=== PATIENT | male | born 1940 | race Caucasian/White ===

== ENCOUNTER 2018-07-09 02:18 | Emergency (ER) | payer MEDICARE ==
[~2018-07-09] VITALS: Ht 167.6 cm; Wt 86.2 kg
[2018-07-09] MEDS ORDERED: TRAMADOL HCL 50 MG TAB PO ONE ×2 (03:00)
[2018-07-09] MEDS ORDERED: KETOROLAC TROMETHAMINE 60 MG/2 ML VIAL ONE (03:22)
[2018-07-09] MEDS ORDERED: KETOROLAC TROMETHAMINE 60 MG/2 ML VIAL IM ONE (03:30)
== END 2018-07-09 03:30 | disposition home or self-care (01) ==
LOC: ER 02:18
DX: H66.001 Acute suppurative otitis media without spontaneous rupture of ear drum, right ear (principal); I10 Essential (primary) hypertension; E78.5 Hyperlipidemia, unspecified; K21.9 Gastro-esophageal reflux disease without esophagitis; Z85.89 Personal history of malignant neoplasm of other organs and systems
CPT/HCPCS: 99283; J1885

== ENCOUNTER 2018-07-12 21:05 | Inpatient (IN) | payer MEDICARE ==
[~2018-07-12] VITALS: Ht 167.6 cm; Wt 85.3 kg
[2018-07-12 21:56] LABS: BASOPHILS # (AUTO) 0.1 (0.0-0.1); BASOPHILS % 0.4 % (0.0-1.0); EOSINOPHILS # (AUTO) 0.3 (0.0-0.4); EOSINOPHILS % 2.5 % (0.0-6.0); HEMATOCRIT 39.6 % (38.2-49.6); HEMOGLOBIN 13.6 g/dL (14.0-18.0); LYMPHOCYTES # (AUTO) 2.3 (1.0-3.2); LYMPHOCYTES % 19.8 % (18.0-39.1); MEAN CORPUSCULAR HEMOGLOBIN 31.6 pg (28-32); MEAN CORPUSCULAR HGB CONC 34.3 g/dL (31-35); MEAN CORPUSCULAR VOLUME 92.1 fL (81-99); MONOCYTES # (AUTO) 1.4 (0.2-0.8); MONOCYTES % 12.5 % (4.4-11.3); NEUTROPHILS # (AUTO) 7.3 (2.1-6.9); NEUTROPHILS % 64.3 % (38.7-80.0); PLATELET COUNT 355 x10e3/uL (140-360); RED CELL DISTRIBUTION WIDTH 12.6 % (11.7-14.4)
[2018-07-12] MEDS ORDERED: DILTIAZEM HCL 5 MG/ML 5 ML VIAL IV STA (21:58)
[2018-07-12 22:00] LABS: INR 0.98; PROTHROMBIN TIME 13.9 seconds (11.9-14.5)
[2018-07-12 22:10] LABS: ALANINE AMINOTRANSFERASE 80 IU/L (0-55); ALBUMIN 2.7 g/dL (3.5-5.0); ALBUMIN/GLOBULIN RATIO 0.7 (0.8-2.0); ALKALINE PHOSPHATASE 58 IU/L (40-150); ANION GAP 14.8 mmol/L (8-16); BLOOD UREA NITROGEN 16 mg/dL (7-26); BUN/CREATININE RATIO 15 (6-25); CALCIUM 8.9 mg/dL (8.4-10.2); CARBON DIOXIDE 20 mmol/L (22-29); CHLORIDE 104 mmol/L (98-107); CREATINE KINASE 148 IU/L (30-200); CREATININE, SERUM 1.05 mg/dL (0.72-1.25); EST GLOMERULAR FILTRATION RATE > 60 ML/MIN (60-); GLUCOSE 265 mg/dL (74-118); MAGNESIUM 2.1 MG/DL (1.3-2.1); POTASSIUM 3.8 mmol/L (3.5-5.1); SODIUM 135 mmol/L (136-145)
[2018-07-12] MEDS ORDERED: METOPROLOL TARTRATE 25 MG TAB PO ONE (22:15)
[2018-07-12] MEDS ORDERED: METOPROLOL TARTRATE 25 MG TAB ONE (22:21)
[2018-07-12 22:30] LABS: THYROID STIMULATING HORMONE 1.137 uIU/mL (0.350-4.940)
--- NOTE | 2018-07-12 22:40 | Diagnostic Imaging Report ---
EXAMINATION: CHEST SINGLE (PORTABLE) INDICATION: NEW AFIB RVR COMPARISON: None FINDINGS: AP view TUBES and LINES: None. LUNGS: Lungs are well inflated. Lungs are clear. There is no evidence of pneumonia or pulmonary edema. PLEURA: No pleural effusion or pneumothorax. HEART AND MEDIASTINUM: The cardiomediastinal silhouette is unremarkable. BONES AND SOFT TISSUES: No acute osseous lesion. Soft tissues are unremarkable. UPPER ABDOMEN: No free air under the diaphragm. IMPRESSION: No acute thoracic abnormality. Signed by: DR. Jamey Mathis MD on 07/12/2018 10:37 PM
[2018-07-12 23:01] LABS: BILIRUBIN,URINE NEGATIVE (NEGATIVE); CLARITY,URINE CLEAR (CLEAR); COLOR,URINE YELLOW (YELLOW); KETONES,URINE NEGATIVE (NEGATIVE); LEUKOCYTE ESTERASE ,URINE NEGATIVE (NEGATIVE); NITRITE,URINE NEGATIVE (NEGATIVE); PROTEIN,URINE DIPSTICK NEGATIVE (NEGATIVE); URINE UROBILINOGEN 0.2 mg/dL (0.2 - 1)
[2018-07-12 23:10] LABS: BACTERIA,URINE RARE /HPF; EPITHELIAL CELLS,URINE FEW /LPF; RENAL EPITHELIAL CELLS,URINE RARE
[2018-07-12] MEDS ORDERED: ASPIR 8181 MG PO (23:12)
[2018-07-12] MEDS ORDERED: PANTOPRAZOLE SO40 MG PO (23:12)
[2018-07-12] MEDS ORDERED: SIMVASTATIN40 MG PO (23:12)
[2018-07-12] MEDS ORDERED: AMOXICILLIN500 MG PO (23:12)
[2018-07-12] MEDS ORDERED: CARVEDILOL3.125 MG PO (23:12)
[2018-07-12] MEDS ORDERED: LISINOPRIL2.5 MG PO (23:12)
[2018-07-12] MEDS ORDERED: CLOPIDOGREL75 MG PO (23:12)
[2018-07-12] MEDS ORDERED: ULTRAM 50MG50 MG PO (23:12)
--- NOTE | 2018-07-12 23:28 | Diagnostic Imaging Report ---
EXAMINATION: Head CT without contrast. HISTORY:Dizziness, high blood pressure. COMPARISON:None. TECHNIQUE: Multidetector axial images were obtained from the foramen magnum to the vertex without contrast. The images were reconstructed using brain and bone algorithms. Thin section brain images were reformatted into coronal and sagittal planes. Dose modulation, iterative reconstruction, and/or weight based adjustment of the mA/kV was utilized to reduce the radiation dose to as low as reasonably achievable. Intravenous contrast: None IMAGE QUALITY: Acceptable. FINDINGS: Skull/scalp: No lytic or blastic. lesions. No surgical changes. Parenchyma: Nonspecific bilateral frontoparietal patchy white matter hypodensity are likely related to small vessel ischemic changes. Focal cortical-based hypodensity in the posterior lateral aspect of the right cerebellar hemisphere, represents age indeterminate, possible chronic vascular insult in right spica territory. No acute hemorrhage, mass or acute major vascular territorial infarct. Arteries: No density suggestive of thrombosis. Dural sinuses: No abnormal density suggestive of thrombosis. Ventricles: Mild compensated dilatation due to volume loss. No hydrocephalus. Extra-axial spaces: No abnormal density. Brain volume: Generalized age-related cerebral volume loss. Craniocervical junction: No mass, Chiari malformation, or basilar invagination. Sella: No mass. Paranasal/mastoid sinuses: Near complete opacification of the visualized portion of right maxillary sinus. Moderate mucosal thickening in bilateral ethmoid and left sphenoid sinus. Partial opacification of right mastoid air cells. IMPRESSION: 1. No acute intracranial abnormality, particularly no acute hemorrhage, mass or acute major vascular territorial infarct. 2. Age indeterminate possible chronic vascular insult in right cerebellar hemisphere. 3. Mild supratentorial white matter microvascular ischemic changes. 4. Generalized age-related cerebral volume loss. Signed by: Dr. Mimi Jack M.D. on 07/12/2018 11:24 PM
[2018-07-12] MEDS ORDERED: ACETAMINOPHEN 325 MG TAB PO PRN (23:45)
[2018-07-12] MEDS ORDERED: ONDANSETRON HCL INJ 2 MG/ML VIAL IV PRN (23:45)
[2018-07-12] MEDS ORDERED: CEFTRIAXONE SOD 1 GM VIAL IV SCH (23:45)
--- OUTSIDE RECORDS SUMMARY | 2018-07-12 23:56 | XMS REPORT ---
[facility] Address Unknown Phone Unavailable Care Team Providers Care Italian Teacher Name Role Phone Maria Elena DUNN Unavailable Unavailable Problems This patient has no known problems. Allergies, Adverse Reactions, Alerts This patient has no known allergies or adverse reactions. Medications This patient has no known medications. Results Test Description Test Time Test Comments Text Results Atomic Results Result Comments CT BRAIN WO 2018-07-12 23:20:00 [facility] [address] [address] Patient Name: CHARLEE ROCHE MR #: [id number] : 1940 Age/Sex: 78/M Req #: [id number] Adm Physician: Ordered by: ESTEBAN DUNN MD Report #: [id number] Location: ER Room/Bed: Procedure: [id number] CT/CT BRAIN WO Exam Date: Exam Time: REPORT STATUS: Signed EXAMINATION: Head CT without contrast. HISTORY:Dizziness, high blood pressure. COMPARISON:None. TECHNIQUE: Multidetector axial images were obtained from the foramen magnum to the vertex without contrast. The images were reconstructed using brain and bone algorithms. Thin section brain images were reformatted into coronal and sagittal planes. Dose modulation, iterative reconstruction, and/or weight based adjustment of the mA/kV was utilized to reduce the radiation dose to as low as reasonably achievable. Intravenous contrast: None IMAGE QUALITY: Acceptable. FINDINGS: Skull/scalp: No lytic or blastic. lesions. No surgical changes. Parenchyma: Nonspecific bilateral frontoparietal patchy white matter hypodensity are likely related to small vessel ischemic changes. Focal cortical-based hypodensity in the posterior lateral aspect of the right cerebellar hemisphere, represents age indeterminate, possible chronic vascular insult in right spica territory. No acute hemorrhage, mass or acute major vascular territorial infarct. Arteries: No density suggestive of thrombosis. Dural sinuses: No abnormal density suggestive of thrombosis. Ventricles: Mild compensated dilatation due to volume loss. No hydrocephalus. Extra-axial spaces: No abnormal density. Brain volume: Generalized age-related cerebral volume loss. Craniocervical junction: No mass, Chiari malformation, or basilar invagination. Sella: No mass. Paranasal/mastoid sinuses: Near complete opacification of the visualized portion of right maxillary sinus. Moderate mucosal thickening in bilateral ethmoid and left sphenoid sinus. Partial opacification of right mastoid air cells. IMPRESSION: 1. No acute intracranial abnormality, particularly no acute hemorrhage, mass or acute major vascular territorial infarct. 2. Age indeterminate possible chronic vascular insult in right cerebellar hemisphere. 3. Mild supratentorial white matter microvascular ischemic changes. 4. Generalized age-related cerebral volume loss. Signed by: Dr. Mimi Jack M.D. on 07/12/2018 11:24 PM Dictated By: MIMI JACK MD 23 Transcribed By: VANCE on 07/12/182323 COPY TO: ESTEBAN DUNN MD CHEST SINGLE (PORTABLE) 2018-07-12 22:36:[address] [address] Patient Name: CHARLEE ROCHE MR #: [id number] : 1940 Age/Sex: 78/M Req #: [id number] Adm Physician: Ordered by: ESTEBAN DUNN MD Report #: [id number] Location: Room/Bed: Procedure: [id number] DX/CHEST SINGLE (PORTABLE) Exam Date: 07/12/18 Exam Time: 2220 REPORT STATUS: Signed EXAMINATION: CHEST SINGLE (PORTABLE) JOAN CATION: NEW AFIB RVR COMPARISON: None FINDINGS: AP view TUBES and LINES: None. LUNGS: Lungs are well inflated. Lungs are clear. There is no evidence of pneumonia or pulmonary edema. PLEURA: No pleural effusion or pneumothorax. HEART AND MEDIASTINUM: The cardiomediastinal silhouette is unremarkable. BONES AND SOFT TISSUES: No acute osseous lesion. Soft tissues are unremarkable. UPPER ABDOMEN: No free air under the diaphragm. IMPRESSION: No acute thoracic abnormality. Signed by: DR. Jamey Amaral MD on 07/12/2018 10:37 PM Dictated By: JAMEY AMARAL MD 36 Transcribed By: VANCE on 07/12/182236 COPY TO: ESTEBAN DUNN MD
[2018-07-13] VITALS (13 sets, daily range): BP systolic 122–141; BP diastolic 68–95
--- NOTE | 2018-07-13 01:50 | NUR ---
PLACED PT ON HOSPITAL BED. BED IS LOCKED AND IN LOW POSITION. SIDE RAILS ARE UP AND CALL LIGHT AT HAND. NO DISTRESS NOTED.
[2018-07-13] MEDS ORDERED: ENOXAPARIN SODIUM INJ 100 MG/ML SYR SC STA (03:01)
[2018-07-13] MEDS ORDERED: METOPROLOL TARTRATE INJ 1 MG/ML VIAL IV ONE ×2 (03:15)
[2018-07-13] MEDS ORDERED: DIGOXIN INJ 0.25 MG/ML 2 ML AMP IV ONE (04:00)
[2018-07-13] MEDS ORDERED: AMIODARONE HCL 150MG 100 ML ONE (04:49)
[2018-07-13] MEDS ORDERED: AMIODARONE 900MG 500 ML IV ONE (04:50)
[2018-07-13] MEDS ORDERED: AMIODARONE HCL 360MG 200 ML IV SCH ×3 (05:00→11:30)
[2018-07-13] MEDS ORDERED: AMIODARONE HCL 150MG 100 ML IV SCH ×2 (05:00→12:45)
[2018-07-13 05:53] LABS: BASOPHILS % 0.4 % (0.0-1.0); EOSINOPHILS # (AUTO) 0.3 (0.0-0.4); EOSINOPHILS % 3.6 % (0.0-6.0); HEMATOCRIT 39.7 % (38.2-49.6); HEMOGLOBIN 13.5 g/dL (14.0-18.0); LYMPHOCYTES # (AUTO) 2.5 (1.0-3.2); LYMPHOCYTES % 26.4 % (18.0-39.1); MEAN CORPUSCULAR HEMOGLOBIN 31.1 pg (28-32); MEAN CORPUSCULAR VOLUME 91.5 fL (81-99); MONOCYTES # (AUTO) 1.3 (0.2-0.8); MONOCYTES % 13.6 % (4.4-11.3); NEUTROPHILS # (AUTO) 5.2 (2.1-6.9); NEUTROPHILS % 55.5 % (38.7-80.0); PLATELET COUNT 352 x10e3/uL (140-360); RED BLOOD COUNT 4.34 x10e6/uL (4.3-5.7); RED CELL DISTRIBUTION WIDTH 12.6 % (11.7-14.4)
[2018-07-13] MEDS ORDERED: AMIODARONE HCL 900 MG in DEXTROSE 5% 500ML 500 ML IV SCH (06:00)
[2018-07-13 06:14] LABS: ALANINE AMINOTRANSFERASE 66 IU/L (0-55); ALBUMIN 2.5 g/dL (3.5-5.0); ALBUMIN/GLOBULIN RATIO 0.7 (0.8-2.0); ALKALINE PHOSPHATASE 53 IU/L (40-150); ANION GAP 12.7 mmol/L (8-16); BLOOD UREA NITROGEN 15 mg/dL (7-26); BUN/CREATININE RATIO 18 (6-25); CALCIUM 8.8 mg/dL (8.4-10.2); CARBON DIOXIDE 22 mmol/L (22-29); CHLORIDE 106 mmol/L (98-107); CHOL/HDL RATIO 5.8 (3.9-4.7); CHOLESTEROL 128 MD/DL (0-199); CREATININE, SERUM 0.83 mg/dL (0.72-1.25); EST GLOMERULAR FILTRATION RATE > 60 ML/MIN (60-); GLUCOSE 134 mg/dL (74-118); HDL CHOLESTEROL 22 MG/DL (40-60); LDL CHOLESTEROL 91 MG/DL (60-130); POTASSIUM 3.7 mmol/L (3.5-5.1); SODIUM 137 mmol/L (136-145); TRIGLYCERIDES 77 MG/DL (0-149)
[2018-07-13 06:31] LABS: CREATINE KINASE MB 1.1 ng/mL (0-5.0)
--- NOTE | 2018-07-13 07:00 | NUR ---
WALKING ROUNDS COMPLETED WITH MARSHALL SULLIVAN; PT UPDATED ON PLAN OF CARE, AMBULATED WITH ASSIST TO RESTROOM AND ASSISTED BACK INTO BED; PT PLACED BACK ON FULL CARDIAC MONITORS AND VERBALIZES NO COMPLAINT AT THIS TIME; BED LOW AND LOCKED, SIDE RAILS UP X3, CALL LIGHT IN REACH; WILL CONTINUE TO MONITOR
--- NOTE | 2018-07-13 07:05 | NUR ---
REPORT GIVEN TO MARSHALL TRIPLETT DAY SHIFT NURSE.
[2018-07-13] MEDS ORDERED: CLOPIDOGREL BISULFATE 75 MG TAB PO SCH (09:00)
[2018-07-13] MEDS ORDERED: ASPIRIN 81 MG ENTERIC COATED PO SCH (09:00)
--- NOTE | 2018-07-13 11:50 | NUR ---
RECVD PT FROM ER VIA BED FROM ER. AAOX3. ASSESSMENT COMPLETED AND RECORDED. PT DENIES PAIN. VS RECORDED. DENIES ANY PAIN AT THIS TIME. BROUGHT TO ROOM. OBTAINED STATUS AND HISTORY FROM BOTH. REVIEWED PRESENT POC AND STATUS, THEY VERBALIZE UNDERSTANDING AND COMPLIANCE.
--- NOTE | 2018-07-13 12:07 | NUR ---
CALLED DR DESHPANDE TO NOTIFY WHERE HIS PATIENT IS. ORDER TO GET CONSULT FOR CARDIOLOGY. CALLED OFFICE OF DR MOSLEY.
[2018-07-13] MEDS ORDERED: ONDANSETRON HCL INJ 2 MG/ML VIAL IV PRN (12:45)
[2018-07-13] MEDS: ASPIRIN 81 MG ENTERIC COATED PO SCH (13:32)
[2018-07-13] MEDS: CEFTRIAXONE SOD 1 GM/NS 50 ML 50 ML IV SCH (13:32)
[2018-07-13] MEDS: AMIODARONE HCL 900 MG in DEXTROSE 5% 500ML 500 ML IV SCH ×2 (13:33→13:34)
[2018-07-13 14:41] LABS: CREATINE KINASE MB 0.9 ng/mL (0-5.0)
--- NOTE | 2018-07-13 16:00 | NUR ---
DR MANDEL MAKING ROUNDS EVAL AND TREAT PT. OK TO COMPLETE DRIP PER PROTOCOL, PO MEDS TO BE STARTED.
--- NOTE | 2018-07-13 16:44 | Consultation ---
DATE OF CONSULTATION: July 13, 2018 CARDIOLOGY CONSULTATION REASON FOR CONSULTATION: Atrial fibrillation. HISTORY OF PRESENT ILLNESS: This is a 78-year-old man with a history of hypertension, coronary artery disease status post percutaneous coronary intervention in 2006, a possible prior cerebrovascular accident/transient ischemic attack, and gastroesophageal reflux disease, who presented to the emergency department with sudden-onset palpitations. He reports that his heart rates were elevated and a fluttering sensation in his chest. He denies any chest pain, shortness of breath, lightheadedness, dizziness or syncope. Patient has no prior cardiac arrhythmias. He otherwise is a fairly active, independent, healthy male. Upon arrival to the emergency department, the patient was found to have atrial fibrillation with rapid ventricular response which did not respond to diltiazem and digoxin. He was started on amiodarone and transported to the ICU. REVIEW OF SYSTEMS: A 12-point review of systems was conducted, is negative otherwise as above in the HPI. PAST MEDICAL HISTORY: Hypertension, myocardial infarction, coronary artery disease, transient ischemic attack/cerebrovascular accident, gastroesophageal reflux disease, basal cell carcinoma. PAST SURGICAL HISTORY: Cardiac catheterization and percutaneous coronary intervention in 2006. PAST FAMILY HISTORY: No premature coronary artery disease or sudden cardiac . SOCIAL HISTORY: No current illicit drug use, alcohol use, tobacco use. ALLERGIES: CODEINE. MEDICATIONS: See medication reconciliation form. PHYSICAL EXAMINATION VITAL SIGNS: Temperature is 98.1, heart rate is 55, respirations are 15, blood pressure is 138/69 and oxygen saturation 96% on room air. GENERALLY: A well-appearing elderly man lying comfortably in bed. HEAD: Normocephalic, atraumatic. EYES: The extraocular muscles are intact. Conjunctiva is clear. NECK: No JVD, no bruits. CARDIOVASCULAR: Regular rate and rhythm. No murmurs. Normal S1 and S2. LUNGS: Clear to auscultation. ABDOMEN: Soft, nontender, nondistended. Normoactive bowel sounds. EXTREMITIES: No clubbing, cyanosis, or edema. VASCULAR: 2+ pulses. SKIN: Warm, dry, intact. NEUROLOGIC: No focal deficits noted. Cranial nerves grossly intact. PSYCHIATRIC: Normal mood and affect. Laboratory data shows a sodium 137, potassium 3.7, creatinine of 0.83. Negative cardiac enzymes x3. BNP of 106. Hemoglobin 13.5. INR is 0.98. Telemetry monitoring revealed atrial fibrillation with rapid ventricular response. Chest x-ray shows no acute thoracic abnormality. CT of the head showed chronic microvascular changes and age-indeterminate possible chronic vascular insult in the right cerebellar hemisphere. IMPRESSION 1. Atrial fibrillation with rapid ventricular response. 2. Hypertension. 3. History of transient ischemic attack/cerebrovascular accident. 4. Coronary artery disease status post percutaneous coronary intervention in 2006. RECOMMENDATIONS: The patient presented with atrial fibrillation. Unclear if this is related to prior infection. Will correct all electrolytes and order a 2-D echocardiogram. He is rate-controlled and back in normal sinus rhythm on amiodarone. Will transition this over to oral therapy and start beta blockers if able to tolerate. Continue close telemetry monitoring. Patient has an elevated CHADS-VASc score due to age, prior cerebral event, and hypertension. Would recommend anticoagulation. Thank you for the consultation. Will follow along with you. Job#: [id number] KAMRAN
[2018-07-13] MEDS: APIXABAN 5 MG TABLET PO SCH (16:46)
[2018-07-13] MEDS: AMIODARONE HCL 200 MG TAB PO SCH (16:46)
[2018-07-13] MEDS: METOPROLOL TARTRATE 25 MG TAB PO SCH (16:46)
--- NOTE | 2018-07-13 16:52 | NUR ---
Belt Machine Operator to bedside to discuss plan of care with patient/family. CM/SW role and care transitions discussed. Anticipated discharge plan discussed along with duration of care. CM/SW discussed patients right to make decisions in care. CM/SW work hours given. Patient lives: PATIENT LIVES IN 1 STORY HOME WITH Admit/Transfer: ED POA/Emergency contact: MICHELLE ROCHE Current/Previous Home Health: NONE; PATIENT INDEPENDENT WITH NO NEEDS PRIOR TO HOSPITALIZATION PCP/Follow-up Care: N/A; CM TO F/U Current/Previous DME: NONE Other Services: NONE Employment Status: RETIRED; WORKS AREA REPRESENTATIVE A spray foam installer FOR [employer] Areas of Concerns: NONE AT THIS TIME Referral Needs: NONE AT THIS TIME Education Needs: N/A IMM/GODINEZ given and signed (if applicable): N/A Goal for discharge: PATIENT AND PATIENT WANT PATIENT TO DISCHARGE HOME WITH NO NEEDS CM left business card at the bedside with contact information. Name and number was also written on the patients whiteboard. Patient verbalized understanding of discussion. CM will follow-up with ongoing discharge and transition of care needs.
--- NOTE | 2018-07-13 17:00 | NUR ---
PM MEDS GIVEN, INSTRUCTED ON PO AMIODORONE AND ELIQUIS. WRITTEN MATERIAL GIVEN TO PT AND , NO FURTHER QUESTIONS AT THIS TIME.
--- NOTE | 2018-07-13 18:00 | NUR ---
PT TO BATHROOM, AFIB IN 120-150, CONVERTED BACK TO SR ONCE IN BED. CHANGED NOTED AND PLACED IN CHART.
--- NOTE | 2018-07-13 18:59 | NUR ---
REPORT GIVEN TO ONCOMING NURSE
[2018-07-13] MEDS ORDERED: ATORVASTATIN 20 MG TAB PO SCH (21:00)
[2018-07-13] MEDS ORDERED: ATORVASTATIN 40 MG TAB PO SCH (21:00)
[2018-07-14] VITALS (25 sets, daily range): BP systolic 96–147; BP diastolic 51–97
[2018-07-14] MEDS ORDERED: CEFTRIAXONE SOD 1 GM/NS 50 ML 50 ML IV SCH
[2018-07-14] MEDS: ACETAMINOPHEN 325 MG TAB PO PRN ×2 (01:30→21:45)
--- NOTE | 2018-07-14 02:02 | History and Physical ---
PRIMARY CARE PHYSICIAN: Dr. Car Guillen. CHIEF COMPLAINT: Chest palpitation. HISTORY OF PRESENT ILLNESS: This is a 78-year-old man recently diagnosed with acute otitis media, started on oral Augmentin. Four days ago, the patient was eating dinner when he developed chest palpitations. took his blood pressure and found it to be quite high, brought him to the hospital, and he was found to be in AFib with RVR. He was admitted to the ICU for further evaluation and management. PAST MEDICAL HISTORY: Hypertension, hyperlipidemia, stroke, and coronary artery disease, status post stent in August 2014. PAST SURGICAL HISTORY: Coronary stent placement in August 2014, tonsillectomy, and wrist surgery. ALLERGIES: PER ELECTRONIC MEDICAL RECORD. FAMILY AND SOCIAL HISTORY: Patient is , has 2 children. No alcohol, illicits, or cigarettes. MEDICATIONS: Per electronic medical record. REVIEW OF SYSTEMS: Denies any fever, chills, sweats, nausea, vomiting, diarrhea, or dizziness. Denies any headache or vision changes. Denies any leg pain. PHYSICAL EXAMINATION VITAL SIGNS: Reviewed. GENERAL: A tired-appearing man resting in bed. HEENT: Anicteric. CARDIOVASCULAR: Normal S1 and S2. Rapid heart rate. LUNGS: Moderate breath sounds. ABDOMEN: Soft, nontender, and nondistended. EXTREMITIES: No edema or calf tenderness. NEUROLOGICAL: Alert and oriented x3. Moving all extremities. SKIN: Dry. PSYCHIATRIC: Normal affect. LABS: Reviewed. MEDICATIONS: Reviewed. ASSESSMENT: This is a 78-year-old man with: 1. Atrial fibrillation with rapid ventricular response. 2. Diabetes mellitus type 2. 3. Urinary tract infection. 4. Right cerebellar brain infarct, appears to be chronic. 5. Hypertension. 6. Hyperlipidemia. 7. Acute transaminitis. 8. Acute otitis media. 9. Coronary artery disease. PLAN 1. Patient received IV amiodarone. Continue oral amiodarone. 2. Continue beta lena. 3. Continue apixaban. 4. Continue statin medication. 5. Continue aspirin. 6. Monitor heart rate. 7. Continue current care in the ICU. 8. Prophylaxis with Pepcid while patient is on anticoagulation. 9. Patient's TSH is normal. Critical care time more than 35 minutes. Job#: [id number] BETTIE
[2018-07-14 04:46] LABS: ALBUMIN 2.5 g/dL (3.5-5.0); BILIRUBIN,DIRECT 0.3 mg/dL (0.0-0.5)
--- NOTE | 2018-07-14 07:00 | NUR ---
BEDSIDE REPORT RECVD. ASSESSMENT COMPLETED AND RECORDED. NO FAMILY AT BEDSIDE. PT VERBALIZES UNDERSTANDING AND CONSENT TO CURRENT POC.
--- NOTE | 2018-07-14 07:04 | NUR ---
IM- Progress note O/N; HR improving REVIEW OF SYSTEMS: Denies any fever, chills, sweats, nausea, vomiting, diarrhea, or dizziness. Denies any headache or vision changes. Denies any leg pain. PHYSICAL EXAMINATION VITAL SIGNS: Reviewed. GENERAL: A tired-appearing man resting in bed. HEENT: Anicteric. CARDIOVASCULAR: Normal S1 and S2. Rapid heart rate. LUNGS: Moderate breath sounds. ABDOMEN: Soft, nontender, and nondistended. EXTREMITIES: No edema or calf tenderness. NEUROLOGICAL: Alert and oriented x3. Moving all extremities. SKIN: Dry. PSYCHIATRIC: Normal affect. LABS: Reviewed. MEDICATIONS: Reviewed. ASSESSMENT: This is a 78-year-old man with: 1. Atrial fibrillation with rapid ventricular response. 2. Diabetes mellitus type 2. 3. Urinary tract infection. 4. Right cerebellar brain infarct, appears to be chronic. 5. Hypertension. 6. Hyperlipidemia. 7. Acute transaminitis. 8. Acute otitis media. 9. Coronary artery disease. PLAN 1. Patient received IV amiodarone. Continue oral amiodarone. 2. Continue beta lena. 3. Continue apixaban. 4. Continue statin medication. 5. Continue aspirin. 6. Monitor heart rate. 7. Continue current care in the ICU. 8. Prophylaxis with Pepcid while patient is on anticoagulation. 9. Patient's TSH is normal. 12/15 HR improving; Hba1c/LDL 5.6/91. TSH normal; cct>35mins.
--- NOTE | 2018-07-14 08:00 | NUR ---
DR DESHPANDE MAKING ROUNDS. NO NEW ORDERS AT THIS TIME.
[2018-07-14] MEDS: DOCUSATE SODIUM 100 MG CAP PO SCH (08:05)
[2018-07-14] MEDS: AMIODARONE HCL 200 MG TAB PO SCH ×2 (08:05→16:30)
[2018-07-14] MEDS: METOPROLOL TARTRATE 25 MG TAB PO SCH ×2 (08:05→16:31)
[2018-07-14] MEDS: FAMOTIDINE 20 MG TAB PO SCH ×2 (08:05→16:30)
[2018-07-14] MEDS: ASPIRIN 81 MG ENTERIC COATED PO SCH (08:05)
[2018-07-14] MEDS: APIXABAN 5 MG TABLET PO SCH ×2 (08:05→16:30)
[2018-07-14] MEDS ORDERED: CLOPIDOGREL BISULFATE 75 MG TAB PO SCH (09:00)
--- NOTE | 2018-07-14 11:00 | NUR ---
AT BEDSIDE. PT TO BRP WITH MONITOR NO CHANGES TO RHYTHM NOTED. SOME DIZZINESS REPORTED.
[2018-07-14] MEDS: CEFTRIAXONE SOD 1 GM/NS 50 ML 50 ML IV SCH (11:48)
--- NOTE | 2018-07-14 17:30 | NUR ---
DR BASHIR MAKING ROUNDS. OK TO GO TO [facility] WITH TELEMETRY. CALLED DR DESHPADNE AND GOT AN OK. INFORMED PT AND . NO FURTHER QUESTIONS AT THIS TIME.
--- NOTE | 2018-07-14 19:11 | NUR ---
REPORT GIVEN TO
[2018-07-14] MEDS: ATORVASTATIN 40 MG TAB PO SCH (20:27)
--- NOTE | 2018-07-14 20:32 | Progress Note ---
DATE: July 14, 2018 CARDIOLOGY PROGRESS NOTE SUBJECTIVE: No major events overnight. Remains in normal sinus rhythm. OBJECTIVE VITAL SIGNS: Temperature 98.0, pulse 60, respiratory rate 18, blood pressure 125/71, satting 98% on room air. GENERAL: Well-developed, obese white man, no acute distress. CARDIOVASCULAR: Regular rate and rhythm. No murmurs, rubs, or gallops. LUNGS: Clear to auscultation bilaterally. ABDOMEN: Soft, nontender, nondistended, obese. NEURO AND PSYCH: Alert and oriented to person, place and time. Normal affect. LABORATORY DATA: Reviewed. TELEMETRY DATA: Reviewed. Patient is now in normal sinus rhythm. ASSESSMENT 1. Atrial fibrillation with rapid ventricular response. 2. Hypertension. 3. History of transient ischemic attack and cerebrovascular accident. 4. Coronary artery disease, status post percutaneous coronary intervention in 2006. RECOMMENDATIONS: Patient has converted back into sinus rhythm, likely related to infectious issues and sepsis. Echo is pending. Continue current cardiovascular medications. Job#: [id number] GLENN
[2018-07-14] MEDS ORDERED: CRESTOR 10MG PO SCH (21:00)
[2018-07-14] MEDS ORDERED: ATORVASTATIN 20 MG TAB PO SCH (21:00)
[2018-07-15] VITALS (24 sets, daily range): BP systolic 13–139; BP diastolic 45–84
--- NOTE | 2018-07-15 06:36 | NUR ---
IM- Progress note O/N; HR improving REVIEW OF SYSTEMS: Denies any fever, chills, sweats, nausea, vomiting, diarrhea, or dizziness. Denies any headache or vision changes. Denies any leg pain. PHYSICAL EXAMINATION VITAL SIGNS: Reviewed. GENERAL: A tired-appearing man resting in bed. HEENT: Anicteric. CARDIOVASCULAR: Normal S1 and S2. Rapid heart rate. LUNGS: Moderate breath sounds. ABDOMEN: Soft, nontender, and nondistended. EXTREMITIES: No edema or calf tenderness. NEUROLOGICAL: Alert and oriented x3. Moving all extremities. SKIN: Dry. PSYCHIATRIC: Normal affect. LABS: Reviewed. MEDICATIONS: Reviewed. ASSESSMENT: This is a 78-year-old man with: 1. Atrial fibrillation with rapid ventricular response. 2. Diabetes mellitus type 2. 3. Urinary tract infection. 4. Right cerebellar brain infarct, appears to be chronic. 5. Hypertension. 6. Hyperlipidemia. 7. Acute transaminitis. 8. Acute otitis media. 9. Coronary artery disease. PLAN 1. Patient received IV amiodarone. Continue oral amiodarone. 2. Continue beta lena. 3. Continue apixaban. 4. Continue statin medication. 5. Continue aspirin. 6. Monitor heart rate. 7. Continue current care in the ICU. 8. Prophylaxis with Pepcid while patient is on anticoagulation. 9. Patient's TSH is normal. 1215 HR improving; Hba1c/LDL 5.6/. TSH normal; cct>35mins. 07/15 f/u echo; cont rate control; Ariel James MD, PhD.
--- NOTE | 2018-07-15 07:00 | NUR ---
BEDSIDE REPORT RECVD. ASSESSMENT COMPLETED AND RECORDED. VSS AND RECORDED. PT VERBALIZES UNDERSTANDING AND CONSENT TO CURRENT POC. NO MEDSURG ROOMS AVAILABLE AT THIS TIME PT TO CONTINUE IN THE ICU. DENIES PAIN. NO FAMILY AT BESIDE.
[2018-07-15] MEDS: ASPIRIN 81 MG ENTERIC COATED PO SCH (08:04)
[2018-07-15] MEDS: APIXABAN 5 MG TABLET PO SCH ×2 (08:04→16:09)
[2018-07-15] MEDS: FAMOTIDINE 20 MG TAB PO SCH ×2 (08:04→16:09)
[2018-07-15] MEDS: AMIODARONE HCL 200 MG TAB PO SCH ×2 (08:04→16:09)
[2018-07-15] MEDS: DOCUSATE SODIUM 100 MG CAP PO SCH (08:04)
[2018-07-15] MEDS: METOPROLOL TARTRATE 25 MG TAB PO SCH ×2 (08:06→16:06)
--- NOTE | 2018-07-15 08:21 | Progress Note ---
DATE: July 15, 2018 CARDIOVASCULAR PROGRESS NOTE SUBJECTIVE: No major events overnight. Remains in normal sinus rhythm. OBJECTIVE VITAL SIGNS: Temperature 98.0, pulse 60, respiratory rate 18, blood pressure 125/71, satting 98% on room air. GENERAL: Well-developed, obese white man, no acute distress. CARDIOVASCULAR: Regular rate and rhythm. No murmurs, rubs, or gallops. LUNGS: Clear to auscultation bilaterally. ABDOMEN: Soft, nontender, nondistended. Obese. NEURO AND PSYCH: Alert and oriented to person, place, and time. Normal affect. LABORATORY DATA: Reviewed. TELEMETRY DATA: Reviewed, now in normal sinus rhythm. ASSESSMENT 1. Atrial fibrillation with rapid ventricular response. 2. Hypertension. 3. History of transient ischemic attack and cerebrovascular accident. 4. Coronary artery disease, status post percutaneous coronary intervention in 2006. RECOMMENDATIONS: Patient remains in sinus rhythm, rate controlled. Final echocardiogram results are pending. Continue apixaban for anticoagulation and oral amiodarone for rhythm control. Thank you for this consult. We will continue to follow. Job#: [id number] MAG
--- NOTE | 2018-07-15 09:00 | NUR ---
NOW AT BEDSIDE. NO CHANGES IN CONDITION OR CARE.
--- NOTE | 2018-07-15 11:00 | NUR ---
NO CHANGES IN CONDITION OR CARE. FAMILY AT BEDSIDE.
[2018-07-15] MEDS: CEFTRIAXONE SOD 1 GM/NS 50 ML 50 ML IV SCH (11:25)
--- NOTE | 2018-07-15 16:30 | NUR ---
PM MEDS GIVEN PER EMAR. DINNER GIVEN. NO C/O DENIES PAIN.
--- NOTE | 2018-07-15 18:52 | NUR ---
report given to oncoming nurse
[2018-07-15] MEDS: ATORVASTATIN 40 MG TAB PO SCH (20:18)
[2018-07-16] VITALS (9 sets, daily range): BP systolic 105–132; BP diastolic 64–78
[2018-07-16] MEDS: CEFTRIAXONE SOD 1 GM/NS 50 ML 50 ML IV SCH ×2 (00:46→12:00)
--- NOTE | 2018-07-16 07:12 | NUR ---
IM- Progress note O/N; HR improving REVIEW OF SYSTEMS: Denies any fever, chills, sweats, nausea, vomiting, diarrhea, or dizziness. Denies any headache or vision changes. Denies any leg pain. PHYSICAL EXAMINATION VITAL SIGNS: Reviewed. GENERAL: A tired-appearing man resting in bed. HEENT: Anicteric. CARDIOVASCULAR: Normal S1 and S2. Rapid heart rate. LUNGS: Moderate breath sounds. ABDOMEN: Soft, nontender, and nondistended. EXTREMITIES: No edema or calf tenderness. NEUROLOGICAL: Alert and oriented x3. Moving all extremities. SKIN: Dry. PSYCHIATRIC: Normal affect. LABS: Reviewed. MEDICATIONS: Reviewed. ASSESSMENT: This is a 78-year-old man with: 1. Atrial fibrillation with rapid ventricular response. 2. Diabetes mellitus type 2. 3. Urinary tract infection. 4. Right cerebellar brain infarct, appears to be chronic. 5. Hypertension. 6. Hyperlipidemia. 7. Acute transaminitis. 8. Acute otitis media. 9. Coronary artery disease. PLAN 1. Patient received IV amiodarone. Continue oral amiodarone. 2. Continue beta lena. 3. Continue apixaban. 4. Continue statin medication. 5. Continue aspirin. 6. Monitor heart rate. 7. Continue current care in the ICU. 8. Prophylaxis with Pepcid while patient is on anticoagulation. 9. Patient's TSH is normal. 07/14 HR improving; Hba1c/LDL 5.6/. TSH normal; cct>35mins. 07/15 f/u echo; cont rate control; 07/16 d/c planning; check labs Ariel James MD, PhD.
[2018-07-16 08:10] LABS: BASOPHILS # (AUTO) 0.1 (0.0-0.1); BASOPHILS % 0.5 % (0.0-1.0); EOSINOPHILS # (AUTO) 0.4 (0.0-0.4); EOSINOPHILS % 3.3 % (0.0-6.0); HEMATOCRIT 41.8 % (38.2-49.6); LYMPHOCYTES # (AUTO) 2.6 (1.0-3.2); MEAN CORPUSCULAR HEMOGLOBIN 30.6 pg (28-32); MEAN CORPUSCULAR HGB CONC 33.5 g/dL (31-35); MEAN CORPUSCULAR VOLUME 91.5 fL (81-99); MONOCYTES # (AUTO) 1.3 (0.2-0.8); NEUTROPHILS # (AUTO) 8.5 (2.1-6.9); NEUTROPHILS % 65.6 % (38.7-80.0); PLATELET COUNT 396 x10e3/uL (140-360); RED BLOOD COUNT 4.57 x10e6/uL (4.3-5.7); RED CELL DISTRIBUTION WIDTH 12.7 % (11.7-14.4)
[2018-07-16 08:30] LABS: BLOOD UREA NITROGEN 18 mg/dL (7-26); BUN/CREATININE RATIO 19 (6-25); CALCIUM 8.9 mg/dL (8.4-10.2); CARBON DIOXIDE 21 mmol/L (22-29); CHLORIDE 109 mmol/L (98-107); CREATININE, SERUM 0.97 mg/dL (0.72-1.25); EST GLOMERULAR FILTRATION RATE > 60 ML/MIN (60-); GLUCOSE 102 mg/dL (74-118); MAGNESIUM 2.3 MG/DL (1.3-2.1); SODIUM 140 mmol/L (136-145)
[2018-07-16] MEDS: DOCUSATE SODIUM 100 MG CAP PO SCH (08:56)
[2018-07-16] MEDS: ASPIRIN 81 MG ENTERIC COATED PO SCH (08:56)
[2018-07-16] MEDS: FAMOTIDINE 20 MG TAB PO SCH ×2 (08:56→16:30)
[2018-07-16] MEDS: AMIODARONE HCL 200 MG TAB PO SCH ×2 (08:57→17:37)
[2018-07-16] MEDS: APIXABAN 5 MG TABLET PO SCH ×2 (08:57→17:37)
[2018-07-16] MEDS: METOPROLOL TARTRATE 25 MG TAB PO SCH ×2 (08:58→17:38)
--- NOTE | 2018-07-16 16:42 | Progress Note ---
DATE: July 16, 2018 CARDIOLOGY PROGRESS NOTE SUBJECTIVE: Patient feeling well and denies any chest pain, palpitations or shortness of breath. OBJECTIVE VITAL SIGNS: Temperature 97.9, heart rate 63, respirations are 20, blood pressure is 119/71, oxygen saturation 94% on room air. GENERAL: Well-appearing elderly man in no apparent distress. CARDIOVASCULAR: Regular rate and rhythm. LUNGS: Clear to auscultation. ABDOMEN: Soft, nontender and nondistended. Normoactive bowel sounds. EXTREMITIES: No edema. VASCULAR: 2+ pulses. LABORATORY DATA: Reviewed. IMPRESSION: 1. Atrial fibrillation. 2. Cerebrovascular accident. 3. Hypertension. 4. Coronary artery disease, status post percutaneous coronary intervention. PLAN: Continue current cardiovascular medications. He is remains in normal sinus rhythm on amiodarone and metoprolol. Continue apixaban for anticoagulation. Job#: [id number]
--- NOTE | 2018-07-17 11:12 | NUR ---
pt discharged yesterday 07/16/2018 @ 1715 in stable condition. pt transported to personal auto via w/c. rx to be picked up at [facility] at 1800. pt verbalized understanding.
== END 2018-07-16 17:30 | disposition home or self-care (01) | DRG 309 ==
LOC: ER 21:05 → OBSVTOIN 23:53 → INTOOBSV 23:53 → ERHOLD 23:53 → UNDOADMOB 23:53 → ERHOLD 07-13 10:01 → ICU 07-13 11:54
PROVIDERS: ADMIT Internal Medicine; ATTEND Internal Medicine
DX: I48.91 Unspecified atrial fibrillation (principal); N39.0 Urinary tract infection, site not specified; H66.90 Otitis media, unspecified, unspecified ear; R74.0 Nonspecific elevation of levels of transaminase and lactic acid dehydrogenase [LDH]; I25.10 Atherosclerotic heart disease of native coronary artery without angina pectoris; E11.9 Type 2 diabetes mellitus without complications; Z86.73 Personal history of transient ischemic attack (TIA), and cerebral infarction without residual deficits; I10 Essential (primary) hypertension; E78.5 Hyperlipidemia, unspecified; K21.9 Gastro-esophageal reflux disease without esophagitis
CPT/HCPCS: 36415; 70450; 71045; 80048; 80053; 80061; 80076; 81001; 82550; 82553; 83036; 83735; 83880; 84443; 84484; 85025; 85610; 85730; 93005; 93306; 96365; 96366; 96376; 99284; J0696; J1160; J1650; J7060

== ENCOUNTER → 2019-09-23 | Outpatient (CLI) | payer MEDICARE ==
[~2019-09-23] VITALS: Ht 167.6 cm; Wt 94.3 kg
[~2019-09-23] MED LIST: AMOXICILLIN500 MG PO; ASPIR 8181 MG PO; ATORVASTATIN CA20 MG PO; CARVEDILOL3.125 MG PO; CLOPIDOGREL75 MG PO; ELIQUIS5 MG PO; LISINOPRIL2.5 MG PO; METOPROLOL TART25 MG PO; PANTOPRAZOLE SO40 MG PO; SIMVASTATIN40 MG PO; ULTRAM 50MG50 MG PO
[2019-09-23 09:57] LABS: BASOPHILS # (AUTO) 0.1 (0.0-0.1); BASOPHILS % 0.6 % (0.0-1.0); EOSINOPHILS # (AUTO) 0.8 (0.0-0.4); EOSINOPHILS % 6.9 % (0.0-6.0); HEMATOCRIT 44.7 % (38.2-49.6); HEMOGLOBIN 15.1 g/dL (14.0-18.0); LYMPHOCYTES # (AUTO) 3.2 (1.0-3.2); LYMPHOCYTES % 27.1 % (18.0-39.1); MEAN CORPUSCULAR HEMOGLOBIN 31.9 pg (28-32); MEAN CORPUSCULAR HGB CONC 33.8 g/dL (31-35); MEAN CORPUSCULAR VOLUME 94.5 fL (81-99); MONOCYTES # (AUTO) 1.3 (0.2-0.8); MONOCYTES % 10.7 % (4.4-11.3); NEUTROPHILS # (AUTO) 6.4 (2.1-6.9); NEUTROPHILS % 54.1 % (38.7-80.0); PLATELET COUNT 227 x10e3/uL (140-360); RED BLOOD COUNT 4.73 x10e6/uL (4.3-5.7)
[2019-09-23 10:34] LABS: ALBUMIN 4.1 g/dL (3.5-5.0); ALBUMIN/GLOBULIN RATIO 1.5 (0.8-2.0); ANION GAP 13.2 mmol/L (8-16); CALCIUM 8.8 mg/dL (8.4-10.2); CREATININE, SERUM 1.17 mg/dL (0.72-1.25); POTASSIUM 4.2 mmol/L (3.5-5.1)
[2019-09-23 10:38] LABS: INR 1.04; PROTHROMBIN TIME 14.2 seconds (11.9-14.5)
== END | disposition home or self-care (01) ==
LOC: LAB 05:00 → CATH LAB 09-25 09:16 → EDSTATUS 09-25 11:30
PROVIDERS: ATTEND Internal Medicine Cardiovascular Disease
DX: Z01.812 Encounter for preprocedural laboratory examination (principal)
CPT/HCPCS: 36415; 80053; 85025; 85610

== ENCOUNTER → 2019-10-04 | Day surgery (SDC) | payer MEDICARE ==
[2019-10-04] VITALS (10 sets, daily range): BP systolic 120–135; BP diastolic 61–97
[~2019-10-04] MED LIST changes: +FENTANYL CITRATE/PF 100MCG/2 ML INJ ONE; +HEPARIN SOD (PORCINE) 1000 UNIT/ML 30ML ONE; +HEPARIN SOD/SOD CHLORIDE 2,000 ML ONE; +IOPAMIDOL 370 MG/ML 200 ML INFUS..BTL INJ ONE; +LIDOCAINE HCL 2% LOCAL 20 ML VIAL ONE; +MIDAZOLAM HCL 2 MG/2 ML VIAL ONE; +NITROGLYCERIN/D5W 200 MCG/ML 250 ML ONE; +SODIUM CHLORIDE 0.9% 1000ML 1,000 ML ONE; +VERAPAMIL HCL 2.5 MG/ML 2 ML VIAL ONE
--- NOTE | 2019-11-11 17:06 | Operative Report ---
DATE OF PROCEDURE: 10/04/2019 SURGEON: Adal Leary DO PROCEDURES PERFORMED: 1. Conscious sedation, 30 minutes. 2. Selective coronary angiography x2. 3. Left heart catheterization. PREPROCEDURE DIAGNOSIS: Abnormal stress test. POST PROCEDURE DIAGNOSIS: Abnormal stress test. ESTIMATED BLOOD LOSS: Less than 20 mL. SPECIMENS REMOVED: None. PROCEDURE IN DETAIL: After informed consent was obtained, the patient was brought to the cardiac catheterization laboratory in a fasting and nonsedated state. Bilateral groins were prepped and draped in usual sterile fashion. A 2% lidocaine was infiltrated and the right femoral artery was accessed via modified Seldinger technique and a six-Belizean sheath was placed. Next, diagnostic coronary angiography x2 and left heart catheterization was performed. The patient tolerated the procedure well. No immediate complications and was transferred to his room in stable condition. PROCEDURAL FINDINGS: 1. Left main coronary artery is patent. 2. Proximal LAD is occluded. There is a stent and a large septal branch that has luminal irregularities. The septal branch potentially could have been bifid LAD system. 3. Left circumflex coronary provides 2 obtuse marginal vessels. The first of which has a severe 70% stenosis. 4. Right coronary is dominant vessel and has a proximal 40% stenosis. There is a distal RCA 70% stenosis prior to the posterolateral and PDA. 5. Left ventricular end-diastolic pressure is 14. IMPRESSION: Severe coronary artery disease. RECOMMENDATIONS: Aggressive medical therapy versus coronary bypass graft surgery. Adal Leary DO BM/MODL /[id number]
== END | disposition home or self-care (01) ==
LOC: CATH LAB 05:36
PROVIDERS: ATTEND Internal Medicine Cardiovascular Disease
DX: I25.118 Atherosclerotic heart disease of native coronary artery with other forms of angina pectoris (principal); R94.39 Abnormal result of other cardiovascular function study; I48.0 Paroxysmal atrial fibrillation; E78.5 Hyperlipidemia, unspecified; I10 Essential (primary) hypertension; Z79.82 Long term (current) use of aspirin; Z95.5 Presence of coronary angioplasty implant and graft; Z86.73 Personal history of transient ischemic attack (TIA), and cerebral infarction without residual deficits; Z82.49 Family history of ischemic heart disease and other diseases of the circulatory system
CPT/HCPCS: 93458; C1887; J1644; J2001; J2250; J3010; J7030; Q9967; 99152; 99153

== ENCOUNTER → 2021-05-13 | Outpatient (CLI) | payer MEDICARE ==
[~2021-05-13] MED LIST changes: -FENTANYL CITRATE/PF 100MCG/2 ML INJ ONE; -HEPARIN SOD (PORCINE) 1000 UNIT/ML 30ML ONE; -HEPARIN SOD/SOD CHLORIDE 2,000 ML ONE; -IOPAMIDOL 370 MG/ML 200 ML INFUS..BTL INJ ONE; -LIDOCAINE HCL 2% LOCAL 20 ML VIAL ONE; -MIDAZOLAM HCL 2 MG/2 ML VIAL ONE; -NITROGLYCERIN/D5W 200 MCG/ML 250 ML ONE; +REGADENOSON 0.4 MG/5 ML SYR IV ONE; -SODIUM CHLORIDE 0.9% 1000ML 1,000 ML ONE; -VERAPAMIL HCL 2.5 MG/ML 2 ML VIAL ONE
== END ==
LOC: NM 10:46
PROVIDERS: ATTEND Internal Medicine Cardiovascular Disease
DX: R07.9 Chest pain, unspecified (principal); I25.10 Atherosclerotic heart disease of native coronary artery without angina pectoris
CPT/HCPCS: 78452; 93017; 93306; A9502; J2785

== ENCOUNTER 2023-11-27 19:51 | Emergency (ER) | payer MEDICARE ==
[~2023-11-27] VITALS: Ht 167.6 cm; Wt 94.3 kg
[~2023-11-27 19:51] MED LIST changes: -REGADENOSON 0.4 MG/5 ML SYR IV ONE
[2023-11-27 20:15] VITALS: O2SAT 96
== END 2023-11-27 20:39 | disposition home or self-care (01) ==
LOC: ER 19:58
DX: M54.2 Cervicalgia (principal); I10 Essential (primary) hypertension; E78.5 Hyperlipidemia, unspecified; K21.9 Gastro-esophageal reflux disease without esophagitis; Z86.73 Personal history of transient ischemic attack (TIA), and cerebral infarction without residual deficits; Z85.828 Personal history of other malignant neoplasm of skin; Z95.5 Presence of coronary angioplasty implant and graft
CPT/HCPCS: 99282